=== PATIENT | male | born 1935 | race Caucasian/White ===

== ENCOUNTER → 2019-06-04 | Outpatient (CLI) | payer MEDICARE, BC ==
--- NOTE | 2019-06-04 16:23 | Diagnostic Imaging Report ---
EXAMINATION: Lumbar spine radiographs, 3 views. COMPARISON: None. HISTORY: 84-year-old male, right-sided sciatica. FINDINGS: There are 5 lumbar-type vertebral bodies. There is grade 1 anterolisthesis of L4 on L5. There is no identified compression deformity. There is multilevel severe disc height loss of the thoracolumbar spine. There are endplate degenerative changes. There is severe facet arthropathy bilaterally at L4-L5. There is right facet degenerative change at L5-S1. 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 IMPRESSION: 1. 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 2. Mild grade 1 anterolisthesis of L4 on L5. Dictated by: Dictated on workstation # [id number]
== END ==
LOC: RAD FS 14:52
PROVIDERS: ATTEND Pediatrics
DX: M51.16 Intervertebral disc disorders with radiculopathy, lumbar region (principal); M47.816 Spondylosis without myelopathy or radiculopathy, lumbar region; M43.16 Spondylolisthesis, lumbar region
CPT/HCPCS: 72100